=== PATIENT | male | born 1980 | race Caucasian/White ===

== ENCOUNTER 2024-04-05 15:16 | Emergency (ER) | payer SELFPAY ==
[2024-04-05 15:27] VITALS: BP 114/72
--- NOTE | 2024-04-05 16:31 | ED.GENMED ---
History of Present Illness
<KRYS Chahal - Last Filed: 04/06/24 09:26>
General
Chief Complaint: Withdrawal Symptoms
Source: patient
Exam Limitations: none
Time Seen by Provider: 04/05/24 16:18
Nursing documentation reviewed up to this point in time: agreed with
History of Present Illness
History of Present Illness:
Patient is a 43-year-old male with past medical history of hepatitis C brought by senior living guards and [facility]. Intake nurse at [facility] was concern for withdrawal. Patient however does not feel
like that he is in withdrawal. 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 He has no complaints. He denies any hallucinations nausea vomiting
sweatiness palpitations. He does not feel that he is in withdrawal. Patient does admit to having open wounds to legs which are not new. He denies any fevers .
Review of Systems
<KRYS Chahal - Last Filed: 04/06/24 09:26>
Review of Systems
Allergies reviewed?: Yes
All Other Systems: ROS reviewed and negative except as documented in HPI and ROS
Constitutional: Reports no symptoms; Denies fever
Respiratory: Reports no symptoms
Cardiac: Reports no symptoms
ABD/GI: Reports no symptoms; Denies nausea or vomiting
Musculoskeletal: Reports no symptoms
Skin: Reports other (pt c/ o of wounds to leg and right forearm)
Neurological: Reports no symptoms
Psychiatric: Reports no symptoms
Phy Exam
<KRYS Chahal - Last Filed: 04/06/24 09:26>
General Physical Exam
General Presentation: no apparent distress
General age: appears stated age
General Skin: warm and dry
General Habitus: normal
General Mental: alert
General Hydration: appears well hydrated
Neurological Exam
Neurological Exam: alert and oriented x3
Musculoskeletal Exam
Musculoskeletal Exam: other (right forearm with induration and erythema scattered scabbed over abrasions in a linear pattern ; + open old chronic appearing wound to right lower leg )
Skin Exam
Skin Exam: normal color and warm/dry
Psychiatric Exam
Psychiatric Exam: normal mood/affect
Course
<KRYS Chahal - Last Filed: 04/06/24 09:26>
Orders/Labs/Results
Orders:
Orders
04/05/24 16:48
Sulfamethox./Trimethoprim Ds [Bactrim Ds 800 mg/160 mg] 1 tablet PO NOW STA
Vital Signs
Initial and Last Documented VS:
Initial Vital Signs
Temp Pulse Resp BP Pulse Ox
97.8 F 56 20 114/72 99
04/05/24 15:27 04/05/24 15:27 04/05/24 15:27 04/05/24 15:27 04/05/24 15:27
Last Documented Vital Signs
Temp Pulse Resp BP Pulse Ox
97.8 F 65 20 113/88 98
04/05/24 15:27 04/05/24 16:59 04/05/24 16:59 04/05/24 16:59 04/05/24 16:59
Manager Image consulted with Physician
Manager Image consulted with physician?: Yes
Name of Physician Consulted: Rosa
<Usha Lee MD - Last Filed: 04/05/24 16:50>
Orders/Labs/Results
Orders:
Orders
04/05/24 16:48
Sulfamethox./Trimethoprim Ds [Bactrim Ds 800 mg/160 mg] 1 tablet PO NOW STA
Vital Signs
Initial and Last Documented VS:
Initial Vital Signs
Temp Pulse Resp BP Pulse Ox
97.8 F 56 20 114/72 99
04/05/24 15:27 04/05/24 15:27 04/05/24 15:27 04/05/24 15:27 04/05/24 15:27
Last Documented Vital Signs
Temp Pulse Resp BP Pulse Ox
97.8 F 65 20 113/88 98
04/05/24 15:27 04/05/24 16:59 04/05/24 16:59 04/05/24 16:59 04/05/24 16:59
<KRYS Chahal - Last Filed: 04/06/24 09:26>
MDM/Problems Addressed
MDM/Problems Addressed:
Patient is a 43-year-old male brought by [facility]. Initial triage note mentions that nurse at [facility] was concerned the patient was in withdrawal however patient has no complaints consistent with
withdrawal and has no clinical symptoms of withdrawal here in the ER. He is nontoxic afebrile nontachycardic no nausea vomiting loose nations no diarrhea no abdominal pain or cramps. He has chronic wounds to his leg and chronic induration redness
to his right forearm. Case reviewed with ED physician who evaluated patient. we will treat for infected skin wounds that are again chronic with Bactrim however cleared for incarceration.
<KRYS Chahal - Last Filed: 04/06/24 09:26>
*Critical Care Note
Total Time (30-74mins, 75-104mins- exclusive of procedures): Not Applicable
ED Attending Note
<KRYS Chahal - Last Filed: 04/06/24 09:26>
-
Portions of this chart may have been created with voice recognition software.� Occasional wrong word or��sound alike� substitutions may have occurred due to the inherent limitations of voice recognition software.
<Usha Lee MD - Last Filed: 04/05/24 16:50>
ED Attending Note
Patient seen and examined by attending physician: Yes
I performed the substantive portion of visit, reviewed & personally made and approve the management plan that is documented in note by myself or CHUCK.: Yes
ED Attending Note:
Patient presents for medical clearance for incarceration with police. Patient appears nontoxic and is eating, smiling and conversational. He denies fever and chills. He denies nausea. Patient does have chronic wounds with a small amount of
erythema of right forearm as well as a chronic wound of his right lower leg with some mild purulent material. However, there is no crepitus or signs of gangrene of his extremities. Patient will be given oral Bactrim will be encouraged to return
with any fever or worsening redness
Discharge Plan
Departure
Patient Disposition: Home (Routine Discharge)
Date of Disposition: 04/05/24
Time of Disposition: 16:48
Patient with high blood pressure during this ER visit?: No
Condition: Fair
Covid-19: Not Applicable
Discharge Problem:
infected skin wounds
Prescriptions:
New
sulfamethoxazole-trimethoprim [Bactrim DS] 800-160 mg tablet
1 tab PO BID Qty: 20 0RF
Referrals:
UNKNOWN - PT DOES,NOT KNOW [Family Provider] -
Activity Restrictions/Additional Instructions:
Patient is cleared for incarceration.
A prescription of Bactrim was given for infected wounds. Patient does not have a fever here and has no complaints. Patient is to return if any worsening of symptoms including increasing redness pain drainage red streaking fever chills
Interventions
Interventions:
*Risk Screen - Suicide Last Done: 04/05/24 15:25
*Neglect/Abuse Screening Last Done: 04/05/24 15:25
ED- Fall Risk Assessment Last Done: 04/05/24 15:27
*ED COVID-19 Vaccine History Last Done: 04/05/24 15:25
*Nursing Disposition Last Done: 04/05/24 17:26
ED- Neurological Assessment Last Done: 04/05/24 15:25
ED-Psychological Assessment Last Done: 04/05/24 15:25
Discharge Date and Time
Discharge Date/Time: 04/05/24 17:26
Print Language: SAMI
[2024-04-05] MEDS: BACTRIM DS 800 MG/160 MG 1 TABLET PO (16:56)
[2024-04-05 16:59] VITALS: BP 113/88
== END 2024-04-05 17:26 | disposition home or self-care (01) ==
LOC: EMR 15:16
PROVIDERS: EMERGENCY PHYSICIAN Emergency Medicine
DX: L08.9 Local infection of the skin and subcutaneous tissue, unspecified (principal); S81.802A Unspecified open wound, left lower leg, initial encounter; S81.801A Unspecified open wound, right lower leg, initial encounter; W45.8XXA Other foreign body or object entering through skin, initial encounter; Z86.19 Personal history of other infectious and parasitic diseases
CPT/HCPCS: 99282